=== PATIENT | male | born 1960 | race Caucasian/White ===

== ENCOUNTER → 2018-06-21 17:47 | Outpatient (CLI) | payer BC | END | disposition home or self-care (01) | LOC: D.LABREF 17:47 | DX: R10.9 Unspecified abdominal pain (principal); L72.3 Sebaceous cyst ==

== ENCOUNTER → 2018-07-01 18:04 | Outpatient (CLI) | payer BC | END | disposition home or self-care (01) | LOC: D.LABREF 18:04 | DX: L72.3 Sebaceous cyst (principal) ==

== ENCOUNTER → 2018-12-09 09:12 | Outpatient (CLI) | payer BC ==
--- NOTE | ~2018-12-09 | EC ---
PATIENT:ALBANIA PHILIPPE DATE OF SERVICE: 12/09/18 SEX: M MEDICAL RECORD: [id number] DATE OF : 58 LOCATION:[facility] AGE OF PATIENT: 58 ADMISSION DATE: 12/09/18 REFERRING PHYSICIAN: INTERPRETING PHYSICIAN: JEAN MARIE GARVIN MD ECHOCARDIOGRAM REPORT ECHO CHARGES 4 ECHO COMPLETE Date: 12/09/18 CLINICAL DIAGNOSIS: MVR H/O HTN/A-FIB ECHOCARDIOGRAPHIC MEASUREMENTS (adult normal given) AC root (d.<3.7cm) 3.2 cm LV Septum d (<1.2 cm> 0.8 cm Valve Excursion 2.1 cm LV Septum (systole) 1.4 cm Left Atria (s.<4.0cm> 4.8 cm LVPW d(<1.2cm) 0.8 cm RV (d.<2.3cm) 2.8 cm LVPW (sytole) 1.2 cm LV diastole(<5.6CM) 5.5 cm MV E-F(>70mm/sec) cm LV systole 3.3 cm LVOT Diameter 2.0 cm MV exc.(>10mm) cm Est.ejection fraction (50-75%) % DOPPLER: LVIT cm/sec A 142 cm/sec E 112 cm/sec LA cm/sec RVSP 27.3 mmHg LVOT 98.0 cm/sec AOP1/2T m/s Asc. Ao 116 cm/sec RVOT 55.0 cm/sec RA cm/sec PA 74.0 cm/sec AV Gradient Peak 5.4 mmHg AV Mean 2.9 mmHg AV Area 2.8 cm MV Gradient Peak 15.0 mmHg MV Mean 5.6 mmHg MV Area cm COMMENTS: OP - HC Anatomic Pathology Manager: 1 LONDON MAIKEL Director Of Casework Department: 3 Dr. Bolaños TAPE# PACS Pericardial Effusion N DATE OF SERVICE: Adequate 2-D echo, color-flow and spectral Doppler, and M-mode. No LVH. LV internal dimension is normal. Wall motion is normal. EF is greater than or equal to 55%. Aortic valve is tricuspid. No evidence of stenosis on Doppler interrogation. Mild AI by color-flow imaging. Left atrium is dilated at 4.8 cm. 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 Right-sided chambers are grossly normal. Trace TR. ECHOCARDIOGRAM REPORT [id number] ALBANIA PHILIPPE TRANSINT:[id number] Voice Confirmation ID: [id number] DOCUMENT ID: [id number] JEAN MARIE GARVIN MD CC: [id number] DICTATION DATE: 12/12/18 1350 SIX SIGMA BLACK BELT ENGINEER: 12/12/18 1538 DEP CLI 12/09/18 [place] [id number] [place] [id number]
== END | disposition home or self-care (01) ==
LOC: D.HCCARDIO 09:12
PROVIDERS: ATTEND Internal Medicine Interventional Cardiology
DX: I10 Essential (primary) hypertension (principal)

== ENCOUNTER → 2019-12-20 09:13 | Outpatient (CLI) | payer BC ==
--- NOTE | ~2019-12-20 | EC ---
PATIENT:ALBANIA PHILIPPE DATE OF SERVICE: 12/20/19 SEX: M MEDICAL RECORD: [id number] DATE OF : 58 [facility] AGE OF PATIENT: 59 ADMISSION DATE: 12/20/19 REFERRING PHYSICIAN: INTERPRETING PHYSICIAN: JEAN MARIE GARVNI MD ECHOCARDIOGRAM REPORT ECHO CHARGES 4 ECHO COMPLETE Date: 12/20/19 CLINICAL DIAGNOSIS: HX OF MVR ECHOCARDIOGRAPHIC MEASUREMENTS (adult normal given) AC root (d.<3.7cm) 3.9 cm LV Septum d (<1.2 cm> 1.2 cm Valve Excursion 1.9 cm LV Septum (systole) 1.6 cm Left Atria (s.<4.0cm> 3.7 cm LVPW d(<1.2cm) 1.6 cm RV (d.<2.3cm) 3.5 cm LVPW (sytole) 1.7 cm LV diastole(<5.6CM) 4.3 cm MV E-F(>70mm/sec) cm LV systole 2.6 cm LVOT Diameter 2.0 cm MV exc.(>10mm) 1.4 cm Est.ejection fraction (50-75%) % DOPPLER: LVIT cm/sec A 124.0cm/sec E 69.0 cm/sec LA cm/sec RVSP 13 mmHg LVOT 80 cm/sec AOP1/2T m/s Asc. Ao 87 cm/sec RVOT 59 cm/sec RA cm/sec PA 96 cm/sec AV Gradient Peak 3.03 mmHg AV Mean 1.70 mmHg AV Area 2.35 cm MV Gradient Peak 6.85 mmHg MV Mean 3.64 mmHg MV Area cm COMMENTS: Assistant Dean Of Students: 2 RASHAAD SETH Style Advisor: 3 Dr. Bolaños TAPE# PACS Pericardial Effusion N DATE OF SERVICE: Adequate 2D, color flow imaging, spectral Doppler and M-mode. Mild LVH. LV internal dimension is normal. Wall motion is normal. EF is greater than or equal to 55%. Aortic valve is tricuspid. No evidence of stenosis by Doppler interrogation. Left atrium is normal at 3.7 cm. Prosthetic mechanical mitral valve is noted with acceptable Doppler velocity and no significant MR. Right-sided chamber is grossly normal. Trace TR. ECHOCARDIOGRAM REPORT [id number] ALB[place] PHILIPPE TRANSINT:[id number] Voice Confirmation ID: [id number] DOCUMENT ID: [id number] JEAN MARIE GARVIN MD CC: [id number] DICTATION DATE: 12/21/19 1414 ASSISTANT TECHNICIAN: [id number] DEP CLI 12/20/19 [place] [id number]
== END | disposition home or self-care (01) ==
LOC: D.HCCECHO 09:13
PROVIDERS: ATTEND Internal Medicine Interventional Cardiology
DX: Z95.2 Presence of prosthetic heart valve (principal)